=== PATIENT | male | born 1960 | race Caucasian/White ===

== ENCOUNTER → 2018-06-23 16:16 | Outpatient (CLI) | payer SELFPAY ==
--- NOTE | 2018-06-23 16:25 | US_ITS ---
STUDY: RENAL ULTRASOUND - COMPLETE REASON FOR EXAM: Male, 57 years old. Lower abdominal pain TECHNIQUE: Ultrasound evaluation of the kidneys was performed with real-time and static jimenez-scale imaging. COMPARISON: None. FINDINGS: RIGHT KIDNEY: Normal location of the right kidney, which is normal in size. The right kidney measures 11.8 x 4.6 x 4.9 cm. There is a normal cortex of the right kidney. The renal cortex measures 1.2 cm. There is no right renal mass or cyst. There are no right renal calculi. There is moderate right hydronephrosis. DISTAL RIGHT URETER: There is non-visualization of the distal right ureter. There is a visualized right ureteral jet. LEFT KIDNEY: Normal location of the left kidney, which is normal in size. The left kidney measures 11.4 x 5.7 x 5.6 cm. There is a normal cortex of the left kidney. The renal cortex measures 1.6 cm. There is no left renal mass or cyst. There are no left renal calculi. There is moderate left hydronephrosis. DISTAL LEFT URETER: There is non-visualization of the distal left ureter. There is a visualized left ureteral jet. BLADDER: The distended urinary bladder has a volume of 252 ml. There is a normal wall thickness of the distended urinary bladder. There is no demonstrated mass within the urinary bladder. There are no demonstrated bladder calculi. US/Kidney and Bladder IMPRESSION: Moderate hydronephrosis bilaterally. Electronically Signed: Navarro Pimentel DO at 23:14 EDT Tel [phone], Service support ,
== END ==
PROVIDERS: Family Provider Family Medicine; PCP Family Medicine; Visit Provider Family Medicine
DX: R10.30 Lower abdominal pain, unspecified (principal)
CPT/HCPCS: 76770

== ENCOUNTER → 2018-07-02 16:36 | Outpatient (CLI) | payer SELFPAY | PROVIDERS: Family Provider Family Medicine; PCP Family Medicine; Visit Provider Nurse Practitioner Adult Health | DX: N13.30 Unspecified hydronephrosis (principal); R10.2 Pelvic and perineal pain; Z87.442 Personal history of urinary calculi | CPT/HCPCS: 74178; Q9967 ==

== ENCOUNTER → 2019-01-25 16:54 | Outpatient (CLI) | payer SELFPAY ==
[2019-01-25 17:51] LABS: PSA,Total- Diagnostic 0.69 ng/mL (0.0-4.0)
== END ==
PROVIDERS: Family Provider Family Medicine; PCP Family Medicine; Referring Provider Urology; Visit Provider Urology
DX: N40.2 Nodular prostate without lower urinary tract symptoms (principal); Z80.42 Family history of malignant neoplasm of prostate
CPT/HCPCS: 36415; 84153

== ENCOUNTER → 2020-06-12 09:39 | Outpatient (CLI) | payer SELFPAY ==
[2020-06-12 10:55] LABS: PSA,Total - Annual Screen 0.75 ng/mL (0.00-4.00)
== END ==
PROVIDERS: PCP Family Medicine; Referring Provider Nurse Practitioner Adult Health; Visit Provider Nurse Practitioner Adult Health
DX: Z12.5 Encounter for screening for malignant neoplasm of prostate (principal)
CPT/HCPCS: 36415; 84153; G0103

== ENCOUNTER → 2020-11-29 09:39 | Outpatient (CLI) | payer SELFPAY ==
--- NOTE | 2020-11-29 09:50 | CT_ITS ---
STUDY: CT ABDOMEN AND PELVIS WITH AND WITHOUT CONTRAST REASON FOR EXAM: Male, 60 years old. ABD PAIN/HEMATURIA RADIATION DOSAGE (If Supplied By Facility): CTDIvol = ( 15.68 ) mGy, DLP = ( 2047.32 ) mGycm TECHNIQUE: Transaxial images were obtained from the dome of the diaphragm to the symphysis pubis without oral contrast. IV- 100 ML ISOVUE 300 was administered. Sagittal and coronal images were reconstructed. Individualized dose optimization techniques were used for this CT. COMPARISON: Comparison is made with prior examination dated 07/02/2018. FINDINGS: The visualized lung bases are unremarkable. The visualized portions of the heart are within normal limits. Normal liver. Normal gallbladder and extrahepatic biliary system. Normal spleen. Normal pancreas. Normal bilateral adrenal glands. Stable bilateral parapelvic renal cysts more prominent on the left side. Stable punctate calcification in the left kidney. No evidence of ureteral obstruction. There is a small hiatal hernia. Normal small intestine. Normal colon. The appendix is visualized and appears normal. Normal abdominal aorta. Normal inferior vena cava. Normal retroperitoneum. Normal urinary bladder. There are prostatic calcifications. There is a small umbilical hernia containing fat. Small bilateral inguinal hernias containing fat more prominent on the left side. Spondylolysis of the pars interarticularis of the L5 vertebrae. CT/CT Abd/Pelvis W/WO Contrast IMPRESSION: Stable examination. Electronically Signed: Herman Gibbs, at 10:34 EST , Service support ,
== END ==
PROVIDERS: PCP Family Medicine; Visit Provider Nurse Practitioner Adult Health
DX: R31.29 Other microscopic hematuria (principal); R10.9 Unspecified abdominal pain
CPT/HCPCS: 74178; Q9967